=== PATIENT | female | born 1985 | race Caucasian/White ===

== ENCOUNTER 2023-12-16 14:17 | Emergency (ER) | payer BC, SELFPAY ==
[2023-12-16 14:19] VITALS: BP 117/66
[2023-12-16 14:39] LABS: % Eosinophils 3.1 % (0-6); % Immature Granulocytes 0.1 % (0-0.5); % Lymphocytes 25.3 % (20.5-51.1); % Monocytes 8.9 % (1.7-9.3); % Neutrophils 61.6 % (42.2-75.2); Absolute Basophils 0.1 10^3/uL (0-0.2); Absolute Eosinophils 0.2 10^3/uL (0-0.7); Absolute Lymphocytes 1.9 10^3/uL (1.2-3.4); Absolute Monocytes 0.7 10^3/uL (0.1-0.6); Absolute Neutrophils 4.5 10^3/uL (1.4-6.5); Hematocrit 36.4 % (37.0-47.0); Hemoglobin 12.4 g/dL (12.0-16.0); Mean Corp Hgb Conc. 34.1 g/dL (33.0-37.0); Mean Corpuscular Hgb 30.5 pg (27.0-31.0); Mean Corpuscular Volume 89.4 fL (81.0-99.0); Mean Platelet Volume 10.3 fL (7.4-10.4); Nucleated Red Blood Cells % 0 %; Platelet Count 227 10^3/uL (130-400); Red Blood Cell Count 4.07 10^6/uL (4.20-5.40); Red Cell Dist. Width 12.2 % (11.5-14.5); White Blood Cell Count 7.3 10^3/uL (4.8-10.8)
[2023-12-16 14:52] LABS: HCG, Serum Qualitative Screen Negative
[2023-12-16 15:01] LABS: ALT (SGPT) 23 U/L (0-35); AST (SGOT) 29 U/L (14-36); Albumin 4.3 g/dl (3.5-5.0); Blood Urea Nitrogen 12 mg/dl (7-17); Calcium 9.2 mg/dl (8.4-10.2); Carbon Dioxide 29 mmol/L (22-30); Chloride 103 mmol/L (98-107); Glucose 85 mg/dl (70-99); Total Bilirubin 0.5 mg/dl (0.2-1.3); Total Protein 6.9 g/dl (6.3-8.2); eGFR > 60.00
[2023-12-16 15:03] LABS: Troponin I < 0.012 ng/ml
[2023-12-16 15:13] LABS: Alkaline Phosphatase 90 U/L (38-126); Lipase 97 U/L (23-300); Potassium 3.8 mmol/L (3.5-5.1); Sodium 141 mmol/L (135-145)
[2023-12-16 17:21] VITALS: BP 109/67; BMI 31.8
--- NOTE | 2023-12-16 18:30 | ED.GENMED ---
History of Present Illness
General
Chief Complaint: Chest Pain
Time Seen by Provider: 12/16/23 17:03
History of Present Illness
History of Present Illness:
38 year-old female with history of hyperlipidemia presenting to the emergency department for chest wall pain. Patient reports symptoms started today when she was yelling at her children, felt stressed. Reports that she has had the symptoms in the
past, however has grown increasingly concerned because her father recently had a heart attack. Denies difficulty breathing. Pain is described as sharp. Denies history of blood clot, recent surgery recent travel, exogenous estrogen. Denies
abdominal pain or GI symptoms. Symptoms have improved since arrival to the hospital. Denies additional acute medical complaints.
Past History
Past History
ED Past Medical History: Other (IBS)
ED Past Surgical History: None
Social History
Tobacco: Non-smoker
Alcohol: None
Drug: None
Personal:
Living: with family
Employment: Employed
Phy Exam
Physical Exam
Physical Exam:
General: Well-appearing, no clinical signs of dehydration, nontoxic and in no acute distress
HEENT: protecting airway
Neck: appears supple
CV: Normal heart rate, regular rhythm. Chest pain reproducible to the sternal chest wall. No crepitus
Resp: No accessory muscle use, no increased work of breathing, lungs clear to auscultation bilaterally
Abd: Soft and non-distended, no tenderness to palpation, normal bowel sounds
Extremities: No deformities, no swelling, no erythema
Neuro: alert, no focal neurologic deficit
: deferred
Rectal: deferred
Psych: Normal affect
Skin: Intact
Scores
Heart Score for Chest Pain Patients
STEMI patient?: No
History: Slightly or Non-Suspicious
ECG: Normal
Age: </= 45 years
Risk Factors: 1 or 2 Risk Factors
Troponin: </= Normal Limit
Heart Score for Chest Pain Patients: 1
Heart Score Risk: 2.5% MACE over next 6 weeks
Course
Orders/Labs/Results
Orders:
Orders
12/16/23 14:21
EKG [Electrocardiogram (*1)] Urgent
Reason for Study: Chest Pain
12/16/23 14:22
EKG- Treatment ONCE
Test Result ONCE
12/16/23 14:30
Complete Blood Count/With Diff Urgent
Comprehensive Metabolic Panel Urgent
HCG, Serum Qualitative Screen Urgent
Lipase Urgent
Troponin I Urgent
Abnormal Lab Results
12/16/23
14:30
RBC 4.07 L 10^6/uL
(4.20-5.40)
Hct 36.4 L %
(37.0-47.0)
Absolute Monos (auto) 0.7 H 10^3/uL
(0.1-0.6)
12/16/23 14:30
12/16/23 14:30
Vital Signs
Initial and Last Documented VS:
Initial Vital Signs
Temp Pulse Resp BP Pulse Ox
97.5 F 86 18 117/66 100
12/16/23 14:19 12/16/23 14:19 12/16/23 14:19 12/16/23 14:19 12/16/23 14:19
Last Documented Vital Signs
Temp Pulse Resp BP Pulse Ox
97.5 F 79 17 109/67 99
12/16/23 14:19 12/16/23 17:45 12/16/23 17:45 12/16/23 17:21 12/16/23 17:45
MDM/Problems Addressed
MDM/Problems Addressed:
38-year-old female with history of hyperlipidemia presenting for chest wall pain after yelling at her children. Vital signs are normal.
On exam patient is well-appearing, no acute distress or discomfort. Benign cardiac and pulmonary exam. EKG nonischemic. Patient with minimal cardiac risk factors, lower suspicion for ACS. Nursing protocol placed prior to my assessment,
undetectable troponin. At this time, again lower suspicion for ACS, low risk by heart score. Patient PERC negative without concern for PE. Pain is also reproducible, with possible musculoskeletal component. Suspect stress related component as
well, notes that it is usually brought on by stress. negative. Reports that her symptoms have improved since onset. At this time feel that she is stable for discharge, remains hemodynamically stable. Feel stable for discharge with
close interval follow-up with PCP. Will provide cardiology follow-up if symptoms persist. Return precautions discussed and patient verbalized understanding
*EKG
Interpreted by ED Provider?: Yes
EKG Intrepretation Date: 12/16/23
EKG Intrepretation Time: 18:36
Interpretation: normal
Comparison EKG: no comparison EKG present
Heart Rate: 75
Rate: normal
Rhythm: sinus
[place]: normal axis
Interval: normal interval
QRS Pattern: normal QRS
Ischemia: no ischemia
*Critical Care Note
Total Time (30-74mins, 75-104mins- exclusive of procedures): Not Applicable
ED Attending Note
-
Portions of this chart may have been created with voice recognition software.� Occasional wrong word or��sound alike� substitutions may have occurred due to the inherent limitations of voice recognition software.
Discharge Plan
Departure
Patient Disposition: Home (Routine Discharge)
Date of Disposition: 12/16/23
Time of Disposition: 18:30
Patient with high blood pressure during this ER visit?: No
Condition: Good
Discharge Problem:
Chest wall pain
Instructions: Chest Pain That Is Not Caused by the Heart (DC)
Prescriptions:
No Action
atorvastatin 40 mg Tablet
40 mg PO HS
acetaminophen [Tylenol] 325 mg Tablet
650 mg PO DAILYPRN PRN (Reason: mild pain)
benzonatate 100 mg Capsule
100 mg PO TIDPRN PRN (Reason: cough)
ascorbate calcium (vitamin C) [Beth-C] 500 mg Tablet
500 mg PO HS
levofloxacin 500 mg Tablet
500 mg PO HS
Patient Comments:
03/10/23 filled on 03/02/23 #10
coenzyme Q10 [Co Q-10] 100 mg Capsule
100 mg PO HS
guaifenesin 400 mg Tablet
400 mg PO DAILYPRN PRN (Reason: congestion)
cholecalciferol (vitamin D3) [Vitamin D3] 50 mcg (2,000 unit) Tablet
50 mcg PO HS
albuterol sulfate 2.5 mg /3 mL (0.083 %) solution for nebulization
2.5 mg inhalation Q4H PRN (Reason: shortness of breath or wheezing) Qty: 90 2RF
prednisone 10 mg tablet
10 mg PO DIRECTED Qty: 40 0RF
Rx Instructions:
4 pills a day for 3 days, 3 pills a day for 3 days, 2 pills a day for 3 days, 1 pill a day for 3 days
Referrals:
Leonardo Pollard MD [Active] - (chest pain)
Gary De La O MD [Family Provider] -
Activity Restrictions/Additional Instructions:
You were seen in the emergency department for chest pain
You were found to have normal EKG and laboratory analysis
Please follow-up closely with your primary care physician, as well as the sheet metal contractor if your symptoms continue.
Return to the emergency department for any worsening of your symptoms, or any development of chest pain, difficulty breathing, abdominal pain with persistent vomiting and inability to tolerate food or liquid by mouth (concern for dehydration),
weakness, headache or confusion, fever greater than 100.4, or any additional symptoms that are concerning to you.
Thank you for choosing [facility].
Interventions
Interventions:
*Risk Screen - Suicide Last Done: 12/16/23 14:19
*General Assessment Last Done: 12/16/23 14:19
*Neglect/Abuse Screening Last Done: 12/16/23 14:19
ED- Fall Risk Assessment Last Done: 12/16/23 17:21
*ED COVID-19 Vaccine History Last Done: 12/16/23 14:19
ED- Cardiac Assessment Last Done: 12/16/23 17:21
Discharge Date and Time
Print Language: CZECH
== END 2023-12-16 18:38 | disposition home or self-care (01) ==
LOC: EMR 14:17
PROVIDERS: Emergency Medicine; EMERGENCY PHYSICIAN Student in an Organized Health Care Education/Training Program; FAMILY PHYSICIAN Family Medicine
DX: R07.89 Other chest pain (principal); K58.9 Irritable bowel syndrome, unspecified; Z88.6 Allergy status to analgesic agent; Z88.5 Allergy status to narcotic agent; Z88.8 Allergy status to other drugs, medicaments and biological substances
CPT/HCPCS: 99283; 80053; 83690; 84484; 84703; 85025; 93005

== ENCOUNTER 2024-12-04 10:08 | Emergency (ER) | payer BC, SELFPAY ==
[2024-12-04 10:13] VITALS: BP 122/75
[2024-12-04 10:39] LABS: Hematocrit 37.5 % (37.0-47.0); Hemoglobin 12.4 g/dL (12.0-16.0); Mean Corp Hgb Conc. 33.1 g/dL (33.0-37.0); Mean Corpuscular Volume 90.8 fL (81.0-99.0); Nucleated Red Blood Cells % 0 %; Platelet Count 239 10^3/uL (130-400); Red Cell Dist. Width 12.5 % (11.5-14.5)
[2024-12-04 11:08] LABS: HCG, Serum Qualitative Screen Negative
[2024-12-04 11:09] LABS: ALT (SGPT) 53 U/L (0-35); AST (SGOT) 45 U/L (14-36); Albumin 4.4 g/dl (3.5-5.0); Alkaline Phosphatase 85 U/L (38-126); Blood Urea Nitrogen 9 mg/dl (7-17); Calcium 9.5 mg/dl (8.4-10.2); Carbon Dioxide 28 mmol/L (22-30); Chloride 103 mmol/L (98-107); Glucose 104 mg/dl (70-99); Lipase 48 U/L (23-300); Potassium 4.6 mmol/L (3.5-5.1); Sodium 137 mmol/L (135-145); Total Protein 7.4 g/dl (6.3-8.2); eGFR > 60.00
[2024-12-04 12:35] VITALS: BMI 30.8
--- NOTE | 2024-12-04 13:01 | ED.GENMED ---
History of Present Illness
General
Chief Complaint: Abdominal Pain
Source: patient
Exam Limitations: none
Time Seen by Provider: 12/04/24 12:53
Nursing documentation reviewed up to this point in time: agreed with
History of Present Illness
History of Present Illness:
Patient is a 39-year-old female who presents to the ER for evaluation. Patient reports she has two complaints . She has had left lateral hip pain for the past 1 month. This is intermittent only when she moves her left hip in certain positions.
She reports for example when she lifts her leg or crosses her leg she has discomfort to the left lateral hip area. She denies any injury. She has been taking ibuprofen. She denies any other joint pain rash or fevers. No repetitive exercise or
injury.
In addition for the past 1 week she has noticed left sided abdominal pain today she had discomfort with straining for bowel movement. She went to urgent care was sent to the ER. She does not feel that this is pelvic pain or menstrual pain. She
denies any nausea vomiting fever chills. Her last menstrual period was 3 weeks ago. She denies any urinary frequency urgency or dysuria.
Past History
Past History
ED Past Medical History: Other (IBS)
ED Past Surgical History: None
Social History
Tobacco: Non-smoker
Alcohol: None
Drug: None
Personal:
Living: with family
Employment: Employed
Phy Exam
General Physical Exam
General Presentation: no apparent distress
General age: appears stated age
General Skin: warm and dry
General Habitus: normal
General Mental: alert
General Hydration: appears well hydrated
Gastrointestinal Exam
Gastrointestinal Exam: soft and other (+ tender left side abdominal region no lower pelvic tenderness )
Neurological Exam
Neurological Exam: alert and oriented x3
Musculoskeletal Exam
Musculoskeletal Exam: other (Shortness of pulses lower extremity normal inspection to left hip no erythema + mildly tenderness to left lateral hip region )
Skin Exam
Skin Exam: normal color and warm/dry
Psychiatric Exam
Psychiatric Exam: normal mood/affect
Course
Orders/Labs/Results
Orders:
Orders
12/04/24 10:19
Test Result ONCE
12/04/24 10:25
Complete Blood Count/With Diff Urgent
Comprehensive Metabolic Panel Urgent
HCG, Serum Qualitative Screen Urgent
Lipase Urgent
12/04/24 12:37
Urinalysis Reflex To Culture Urgent
Date Specimen was Collected: 12/04/24
Time Specimen was Collected: 12:31
12/04/24 13:03
CT Abd/pelvis W Iv Cont Urgent
Comment:
Reason For Exam: left sided abd pain
Hip, Left 2-3 Views [CR Hip - LT w/wo Pel 2-3 Vw*] Urgent
Comment:
Reason For Exam: pain
Include a pelvis x-ray?: Yes
12/04/24 17:29
US Pelvis Only (non-obstetric) Urgent
Comment:
Reason For Exam: llq pain
12/04/24 18:10
Ondansetron Injectable [Zofran] 4 mg IV NOW STA
Abnormal Lab Results
12/04/24
10:25
RBC 4.13 L 10^6/uL
(4.20-5.40)
Creatinine 0.5 L mg/dL
(0.6-1.0)
Glucose 104 H mg/dl
(70-99)
AST 45 H U/L
(14-36)
ALT 53 H U/L
(0-35)
12/04/24 10:25
12/04/24 10:25
Vital Signs
Initial and Last Documented VS:
Initial Vital Signs
Temp Pulse Resp BP Pulse Ox
97.8 F 88 16 122/75 98
12/04/24 10:13 12/04/24 10:13 12/04/24 10:13 12/04/24 10:13 12/04/24 10:13
Last Documented Vital Signs
Temp Pulse Resp BP Pulse Ox
97.8 F 82 20 113/73 99
12/04/24 10:13 12/04/24 19:49 12/04/24 19:49 12/04/24 19:49 12/04/24 19:49
MDM/Problems Addressed
Differential Diagnosis Includes:
Not limited to tendinitis bursitis muscle pain less likely septic arthritis, diverticulitis, constipation, less likely obstruction, ovarian cyst less likely ovarian torsion
MDM/Problems Addressed:
As documented patient is a 39-year-old female who complains of intermittent left hip pain worse with movement though denies injury. No reports of recent fever or chills. No other joint pain myalgia or fevers. She is in no acute distress no
redness on exam she does have good range of motion. No acute findings on x-ray of the hip. No evidence for septic hip.
In addition patient complains of left lower quadrant off-and-on for the past several weeks. CAT scan shows a 4.8 centimeter left ovarian cyst. Other incidental findings including osteitis condensans ilii. I did review this with patient and would
recommend outpatient follow-up for orthopedic finding and hip pain. Regarding ovarian cyst with size would do a dedicated ultrasound.
US shows 4 cm left ovarian cyst no torsion normal blood flow will DC with outpatient follow-up with orthopedic for further evaluation of hip pain as well as chain mender
Will DC with ibuprofen [id number] for the next several days alternate with Tylenol. 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
*Radiology
Radiology exam reviewed: radiology read reviewed
*Pulse Oximetry
SaO2: 98
Oxygen Mode of Delivery: Room air
Patient hypoxic: no
*Critical Care Note
Total Time (30-74mins, 75-104mins- exclusive of procedures): Not Applicable
ED Attending Note
-
Portions of this chart may have been created with voice recognition software.� Occasional wrong word or��sound alike� substitutions may have occurred due to the inherent limitations of voice recognition software.
Discharge Plan
Departure
Patient Disposition: Home (Routine Discharge)
Date of Disposition: 12/04/24
Time of Disposition: 20:23
Patient with high blood pressure during this ER visit?: No
Condition: Fair
Covid-19: Not Applicable
Discharge Problem:
Ovarian cyst, Acute hip pain
Instructions: Hip Pain ED, Ovarian cyst - ED discharge instructions
Prescriptions:
No Action
atorvastatin 40 mg Tablet
40 mg PO HS
acetaminophen [Tylenol] 325 mg Tablet
650 mg PO DAILYPRN PRN (Reason: mild pain)
benzonatate 100 mg Capsule
100 mg PO TIDPRN PRN (Reason: cough)
ascorbate calcium (vitamin C) [Beth-C] 500 mg Tablet
500 mg PO HS
levofloxacin 500 mg Tablet
500 mg PO HS
Patient Comments:
03/10/23 filled on 03/02/23 #10
coenzyme Q10 [Co Q-10] 100 mg Capsule
100 mg PO HS
guaifenesin 400 mg Tablet
400 mg PO DAILYPRN PRN (Reason: congestion)
cholecalciferol (vitamin D3) [Vitamin D3] 50 mcg (2,000 unit) Tablet
50 mcg PO HS
albuterol sulfate 2.5 mg /3 mL (0.083 %) solution for nebulization
2.5 mg inhalation Q4H PRN (Reason: shortness of breath or wheezing) Qty: 90 2RF
prednisone 10 mg tablet
10 mg PO DIRECTED Qty: 40 0RF
Rx Instructions:
4 pills a day for 3 days, 3 pills a day for 3 days, 2 pills a day for 3 days, 1 pill a day for 3 days
Referrals:
Gary De La O MD [Family Provider, Family Practice]
Juancho Johns MD [Active, Orthopedics]
Activity Restrictions/Additional Instructions:
As discussed for your ovarian cyst please follow-up with your chain mender. call tomorrow to make an appointment soon as possible. In addition please follow-up with orthopedics. For both ,you may take ibuprofen 600 mg every 8 hours with food for
the next several days intermittently alternate with Tylenol. Return if any worsening of symptoms
Interventions
Interventions:
*Risk Screen - Suicide Last Done: 12/04/24 12:32
*General Assessment Last Done: 12/04/24 12:32
*Neglect/Abuse Screening Last Done: 12/04/24 12:32
*ED- Fall Risk Assessment Last Done: 12/04/24 12:32
*ED COVID-19 Vaccine History Last Done: 12/04/24 12:32
*Nursing Disposition Last Done: 12/04/24 20:36
[id number] Assessment Last Done: 12/04/24 12:32
ED-Musculoskeletal Assessment Last Done: 12/04/24 12:32
Discharge Date and Time
Discharge Date/Time: 12/04/24 20:42
Print Language: BELGIAN
[2024-12-04 13:11] LABS: Urine Character Clear (Clear)
[2024-12-04 15:26] VITALS: BP 114/70
[2024-12-04 19:49] VITALS: BP 113/73
== END 2024-12-04 20:42 | disposition home or self-care (01) ==
LOC: EMR 10:08
PROVIDERS: Student in an Organized Health Care Education/Training Program; EMERGENCY PHYSICIAN Student in an Organized Health Care Education/Training Program; FAMILY PHYSICIAN Family Medicine
DX: N83.202 Unspecified ovarian cyst, left side (principal); M25.552 Pain in left hip; K58.9 Irritable bowel syndrome, unspecified
CPT/HCPCS: 99284; 73502; 74177; 76856; 80053; 81003; 83690; 84703; 85025; Q9967